=== PATIENT | male | born 1965 | race Caucasian/White ===

== ENCOUNTER 2017-12-17 07:45 | Emergency (ER) | payer BC ==
[2017-12-17 08:36] LABS: Absolute Lymphocytes (CBC) 2.6 K/uL (0.7-4.9); Absolute Monocytes 0.7 K/uL (0.1-1.3); Absolute Neutrophil 5.3 K/uL (1.8-8.0); Basophils % 1.1 % (0-1.3); Eosinophils % 3.1 % (0-4.4); Hematocrit 47.9 % (39.6-49.0); Lymphocytes % 29.2 % (15.3-44.8); MCH 29.8 pg (27.0-35.0); MCV 87.1 fL (80-100); MPV 8.3 fL (7.6-11.3); Monocytes % 7.6 % (3.3-12.3); RBC Red Blood Cell Count 5.51 M/uL (4.33-5.43)
[2017-12-17] MEDS ORDERED: METHYLPREDNISOLONE 125 MG INJ ONE (08:42)
[2017-12-17] MEDS ORDERED: ALBUTEROL 2.5 MG/3 ML NEB SOL ONE (08:43)
[2017-12-17] MEDS ORDERED: IPRATROPIUM BROM 0.5MG/2.5ML ONE (08:43)
[2017-12-17] MEDS ORDERED: MORPHINE 4 MG/ML SYR ONE ×2 (08:44→09:40)
[2017-12-17] MEDS ORDERED: AZITHROMYCIN 0 MG/0 ML BAG ONE (08:44)
[2017-12-17] MEDS ORDERED: PIPER/TAZO/NS 3.375gm 3.375 GM/100 ML BAG ONE (08:44)
[2017-12-17] MEDS ORDERED: NA CHLORIDE 0.9% 2,000 ML ONE (08:45)
--- NOTE | 2017-12-17 08:54 | EDPHYS ---
Physician Documentation [facility] Name: Eben Narvaez Age: 52 yrs Sex: Male : 1965 Arrival Date: 12/17/2017 Time: 07:47 Bed 8 Private MD: ED Physician Mike Ritter HPI: 12/17 08:49 This 52 yrs old Male presents to ER via Wheelchair with complaints of Cough, leandro Breathing Difficulty, RIB PAIN. 08:49 The patient or guardian reports cough, difficulty breathing. Onset: The leandro symptoms/episode began/occurred 2 week(s) ago. Severity of symptoms: At their worst the symptoms were mild, moderate, in the emergency department the symptoms are unchanged. Modifying factors: The symptoms are alleviated by nothing, the symptoms are aggravated by exertion, talking. Associated signs and symptoms: Pertinent positives: chest pain. The patient has not experienced similar symptoms in the past. Historical: - Allergies: 08:10 NKA; iw - Home Meds: 08:16 losartan oral oral [Active]; levothyroxine 75 mcg tab 1 tab once daily [Active]; iw - PMHx: 08:16 Hypertension; Hypothyroidism; iw - Immunization history:: Adult Immunizations not up to date. - Social history:: Smoking status: Patient/guardian denies using tobacco. - Ebola Screening: : Patient negative for fever greater than or equal to 101.5 degrees Fahrenheit, and additional compatible Ebola Virus Disease symptoms Patient denies exposure to infectious person Patient denies travel to an Ebola-affected area in the 21 days before illness onset No symptoms or risks identified at this time. ROS: 08:50 Constitutional: Negative for fever, chills, and weight loss, Eyes: Negative for injury, leandro pain, redness, and discharge, ENT: Negative for injury, pain, and discharge, Neck: Negative for injury, pain, and swelling, Cardiovascular: Negative for chest pain, palpitations, and edema, Abdomen/GI: Negative for abdominal pain, nausea, vomiting, diarrhea, and constipation, Back: Negative for injury and pain, : Negative for injury, bleeding, discharge, and swelling, MS/Extremity: Negative for injury and deformity, Skin: Negative for injury, rash, and discoloration, Neuro: Negative for headache, weakness, numbness, tingling, and seizure, Psych: Negative for depression, anxiety, suicide ideation, homicidal ideation, and hallucinations, Allergy/Immunology: Negative for hives, rash, and allergies, Endocrine: Negative for neck swelling, polydipsia, polyuria, polyphagia, and marked weight changes, Hematologic/Lymphatic: Negative for swollen nodes, abnormal bleeding, and unusual bruising. 08:50 Respiratory: Positive for cough, pleurisy, of the right lateral anterior chest and right lateral posterior chest, shortness of breath. Exam: 08:50 Constitutional: This is a well developed, well nourished patient who is awake, alert, leandro and in no acute distress. Head/Face: Normocephalic, atraumatic. Eyes: Pupils equal round and reactive to light, extra-ocular motions intact. Lids and lashes normal. Conjunctiva and sclera are non-icteric and not injected. Cornea within normal limits. Periorbital areas with no swelling, redness, or edema. ENT: Nares patent. No nasal discharge, no septal abnormalities noted. Tympanic membranes are normal and external auditory canals are clear. Oropharynx with no redness, swelling, or masses, exudates, or evidence of obstruction, uvula midline. Mucous membranes moist. Neck: Trachea midline, no thyromegaly or masses palpated, and no cervical lymphadenopathy. Supple, full range of motion without nuchal rigidity, or vertebral point tenderness. No Meningismus. Chest/axilla: Normal chest wall appearance and motion. Nontender with no deformity. No lesions are appreciated. Cardiovascular: Regular rate and rhythm with a normal S1 and S2. No gallops, murmurs, or rubs. Normal PMI, no JVD. No pulse deficits. Abdomen/GI: Soft, non-tender, with normal bowel sounds. No distension or tympany. No guarding or rebound. No evidence of tenderness throughout. Back: No spinal tenderness. No costovertebral tenderness. Full range of motion. Male : Normal genitalia with no discharge or lesions. Skin: Warm, dry with normal turgor. Normal color with no rashes, no lesions, and no evidence of cellulitis. MS/ Extremity: Pulses equal, no cyanosis. Neurovascular intact. Full, normal range of motion. Neuro: Awake and alert, GCS 15, oriented to person, place, time, and situation. Cranial nerves II-XII grossly intact. Motor strength 5/5 in all extremities. Sensory grossly intact. Cerebellar exam normal. Normal gait. Psych: Awake, alert, with orientation to person, place and time. Behavior, mood, and affect are within normal limits. 08:50 Respiratory: mild respiratory distress is noted, moderate respiratory distress is noted, Respirations: labored breathing, that is mild, that is moderate, Breath sounds: decreased breath sounds, rhonchi, that are moderate, are heard in the right middle lobe, right lower lobe, right posterior middle lobe and right posterior lower lobe. 08:52 Musculoskeletal/extremity: DVT Exam: No signs of deep vein thrombosis. no pain, no leandro swelling, no tenderness, negative Homans' sign noted on exam, no appreciated bluish discoloration, no erythema, no increased warmth. Vital Signs: 08:45 BP 165 / 121; Pulse 87; Resp 15; Pulse Ox 97% on R/A; Weight 96.62 kg; Height 5 ft. 7 iw in. (170.18 cm); Pain 10/10; 09:13 BP 142 / 95; Pulse 73; Resp 17; Pulse Ox 99% on R/A; jb1 09:35 BP 139 / 89; Pulse 78; Resp 22; Pulse Ox 96% on R/A; jb4 10:35 BP 136 / 80; Pulse 80; Resp 19; Pulse Ox 92% on R/A; Pain 0/10; jb4 11:36 BP 130 / 74; Pulse 77; Resp 17; Temp 97.8(O); Pulse Ox 96% on 2 lpm NC; jb4 12:00 BP 132 / 75; Pulse 67; Resp 17; Pulse Ox 95% on 2 lpm NC; jb4 13:08 BP 145 / 78; Pulse 75; Resp 16; Pulse Ox 96% on R/A; Pain 0/10; jb4 13:36 BP 134 / 82; Pulse 78; Resp 20; Pulse Ox 95% on 2 lpm NC; Pain 0/10; jb4 08:45 Body Mass Index 33.36 (96.62 kg, 170.18 cm) iw MDM: 07:58 Patient medically screened. [facility] 08:51 Data reviewed: vital signs, nurses notes, lab test result(s), EKG, radiologic studies, [facility] CT scan, plain films. 12/17 08:02 Order name: Basic Metabolic Panel; Complete Time: 09:32 [facility] 12/17 08:02 Order name: CBC with Diff; Complete Time: 08:52 [facility] 12/17 08:02 Order name: Ckmb; Complete Time: 09:32 [facility] 12/17 08:02 Order name: CPK; Complete Time: 09:32 [facility] 12/17 08:02 Order name: LFT's; Complete Time: 09:32 [facility] 12/17 08:02 Order name: Magnesium; Complete Time: 09:32 [facility] 12/17 08:02 Order name: NT PRO-BNP; Complete Time: 09:32 [facility] 12/17 08:02 Order name: PT-INR; Complete Time: 08:52 [facility] 12/17 08:02 Order name: Ptt, Activated; Complete Time: 08:52 [facility] 12/17 08:02 Order name: Troponin (emerg Dept Use Only); Complete Time: 09:32 [facility] 12/17 08:02 Order name: Blood Culture Adult (2) [facility] 12/17 08:13 Order name: Procalcitonin; Complete Time: 09:32 [facility] 12/17 08:13 Order name: Lactate; Complete Time: 09:32 [facility] 12/17 11:43 Order name: Urine Dipstick--Ancillary (enter results) 12/17 08:02 Order name: Chest Pa And Lat (2 Views) XRAY; Complete Time: 10:44 [facility] 12/17 08:43 Order name: CT Chest For PE Angio [facility] 12/17 08:57 Order name: INCENTIVE SPIROMETRY [facility] 12/17 10:36 Order name: CT; Complete Time: 10:44 EDMS 12/17 11:03 Order name: CT Abd/Pelvis - Without Cont aa5 12/17 12:25 Order name: Urine Dipstick-Ancillary [facility] 12/17 13:24 Order name: CT [facility] 12/17 08:02 Order name: EKG; Complete Time: 08:03 [facility] 12/17 08:02 Order name: Cardiac monitoring; Complete Time: 08:05 [facility] 12/17 08:02 Order name: EKG - Nurse/Tech; Complete Time: 08:05 [facility] 12/17 08:02 Order name: IV Saline Lock; Complete Time: 08:05 [facility] 12/17 08:02 Order name: Labs collected and sent; Complete Time: 08:30 [facility] 12/17 08:02 Order name: O2 Per Protocol; Complete Time: 08:08 [facility] 12/17 08:02 Order name: O2 Sat Monitoring; Complete Time: 08:08 [facility] 12/17 08:02 Order name: Urine Dipstick-Ancillary (obtain specimen); Complete Time: 11:36 [facility] 12/17 08:57 Order name: CONS Physician Consult EDMS Administered Medications: 08:40 Drug: Albuterol - atroVENT (3:1) (2.5 mg - 0.5 mg) 3 ml Route: Nebulizer; jb4 08:45 Follow up: Response: No adverse reaction jb4 08:40 Drug: SOLU-Medrol 125 mg Route: IVP; Site: left antecubital; jb4 09:00 Follow up: Response: No adverse reaction jb4 08:43 Drug: morphine 4 mg Route: IVP; Site: left antecubital; jb4 09:00 Follow up: Response: No adverse reaction jb4 08:44 Drug: NS 0.9% 1000 ml Route: IV; Rate: 1 bolus; Site: left antecubital; jb4 10:55 Follow up: Response: No adverse reaction; IV Status: Completed infusion jb4 08:45 Drug: Zosyn 3.375 grams Route: IVPB; Infused Over: 60 mins; Site: left antecubital; jb4 10:45 Follow up: IV Status: Order to discontinue infusion; Order to discontinue infusion by aa5 Dr. Lino. 09:40 Drug: TORadol 30 mg Route: IVP; Site: left antecubital; jb4 10:04 Follow up: Response: No adverse reaction jb4 09:42 Drug: morphine 4 mg Route: IVP; Site: left antecubital; jb4 10:04 Follow up: Response: No adverse reaction jb4 11:06 Not Given (VO to cancel administration by Dr. Lino): Zithromax 500 mg IVPB once over 1 aa5 hrs; mix in 250 mL NS 11:12 Not Given (VO to cancel administration per Dr. Lino): NS 0.9% 1000 ml IV at 125 ml/hr aa5 continuous Disposition: 12/17/17 10:50 Discharged to Home. Impression: Gastro-esophageal reflux disease, Fatty (change of) liver, not elsewhere classified, Obesity due to excess calories. - Condition is Stable. - Discharge Instructions: Atelectasis, Adult, Food Choices for Gastroesophageal Reflux Disease, Adult, Gastroesophageal Reflux Disease, Adult, Fatty Liver Disease Diet, Pediatric. - Prescriptions for Protonix 40 mg Oral Tablet - take 1 tablet by ORAL route once daily; 30 tablet. - Medication Reconciliation Form, Thank You Letter, Antibiotic Education, Prescription Opioid Use form. - Follow up: Corey Lopez MD; When: 1 - 2 days. - Problem is chronic. - Symptoms have improved. Signatures: Dispatcher [employer] EDPR Mike Ritter MD MD cha Williams, Irene, RN RN iw Juan Daniel Flores RN RN jb4 Elizabeth Lino MD MD rp3 Britt Maloney RN aa5 Corrections: (The following items were deleted from the chart) 10:49 08:53 Hospitalization Ordered by Elizabeth Lino MD for Inpatient Admission. Preliminary rp3 diagnosis is Cough; Dyspnea; Pleurisy; Pneumonia due to other specified bacteria. Bed requested for Telemetry/MedSurg (Inpatient). Status is Inpatient Admission. Condition is Fair. Problem is new. Symptoms have improved. UTI on Admission? No. [facility] 14:20 10:50 12/17/2017 10:50 Discharged to Home. Impression: Gastro-esophageal reflux jb4 disease; Fatty (change of) liver, not elsewhere classified; Obesity due to excess calories. Condition is Stable. Forms are Medication Reconciliation Form, Thank You Letter, Antibiotic Education, Prescription Opioid Use. Follow up: Corey Lopez; When: 1 - 2 days. Problem is chronic. Symptoms have improved. rp3
--- NOTE | 2017-12-17 08:54 | ER ---
Nurse's Notes [facility] Name: Eben Narvaez Age: 52 yrs Sex: Male : 1965 Arrival Date: 12/17/2017 Time: 07:47 Bed 8 Private MD: Diagnosis: Gastro-esophageal reflux disease;Fatty (change of) liver, not elsewhere classified;Obesity due to excess calories Presentation: 12/17 08:09 Presenting complaint: states: pt has had cough X 1 month, started having pain to iw right ribs and right abd area 2 days ago, pain 10/10, increased pain and difficulty breathing when he moves or takes a deep breath. Transition of care: patient was not received from another setting of care. Onset of symptoms was December 17, 2017. Risk Assessment: Do you want to hurt yourself or someone else? Patient reports no desire to harm self or others. Initial Sepsis Screen: Does the patient meet any 2 criteria? No. Patient's initial sepsis screen is negative. Does the patient have a suspected source of infection? No. Patient's initial sepsis screen is negative. Care prior to arrival: None. 08:09 Method Of Arrival: Wheelchair iw 08:09 Acuity: NESS 2 iw Triage Assessment: 08:06 Respiratory: Reports cough that is non-productive, the patient has mild shortness of jb4 breath. 08:06 General: Appears in no apparent distress. uncomfortable, Behavior is calm, cooperative, jb4 appropriate for age. Historical: - Allergies: 08:10 NKA; iw - Home Meds: 08:16 losartan oral oral [Active]; levothyroxine 75 mcg tab 1 tab once daily [Active]; iw - PMHx: 08:16 Hypertension; Hypothyroidism; iw - Immunization history:: Adult Immunizations not up to date. - Social history:: Smoking status: Patient/guardian denies using tobacco. - Ebola Screening: : Patient negative for fever greater than or equal to 101.5 degrees Fahrenheit, and additional compatible Ebola Virus Disease symptoms Patient denies exposure to infectious person Patient denies travel to an Ebola-affected area in the 21 days before illness onset No symptoms or risks identified at this time. Screenin:09 Abuse screen: Denies threats or abuse. Nutritional screening: No deficits noted. jb4 Tuberculosis screening: No symptoms or risk factors identified. 08:09 Fall Risk None identified. jb4 Assessment: 08:25 General: Appears in no apparent distress. uncomfortable, Behavior is calm, cooperative, jb4 appropriate for age. Pain: Complains of pain in right lateral anterior chest Pain does not radiate. Pain currently is 10 out of 10 on a pain scale. at worst was 10 out of 10 on a pain scale. Quality of pain is described as stabbing, Pain began 2-3 days ago. Is continuous. Neuro: Level of Consciousness is awake, alert, obeys commands, Oriented to person, place, time, situation. Cardiovascular: Heart tones S1 S2 present Patient's skin is warm and dry. Rhythm is sinus rhythm. Respiratory: Airway is patent Respiratory effort is unlabored, shallow, Respiratory pattern is regular, symmetrical, Breath sounds are clear in right upper lobe, left upper lobe, left lower lobe, left posterior upper lobe, right posterior upper lobe and left posterior lower lobe Breath sounds are diminished in right middle lobe, right lower lobe, right posterior middle lobe and right posterior lower lobe. GI: No signs and/or symptoms were reported involving the gastrointestinal system. : No signs and/or symptoms were reported regarding the genitourinary system. EENT: No signs and/or symptoms were reported regarding the EENT system. Derm: Skin is intact, Skin is pink, warm \T\ dry. Musculoskeletal: No signs and/or symptoms reported regarding the musculoskeletal system. 09:15 Reassessment: Pt taken to CT. jb4 09:30 Reassessment: Pt back from CT. Unable to tolerate. Provider notified, See MAR for jb4 orders. 09:55 Reassessment: Patient appears in no apparent distress at this time. Patient and/or jb4 family updated on plan of care and expected duration. Pain level reassessed. Patient is alert, oriented x 3, equal unlabored respirations, skin warm/dry/pink. Pt laying supine. Denies pain at this time. Will reassess to evaluate ability to tolerate CT. 10:00 Reassessment: Pt tolerated lying supine for 5 minutes, denies pain. CT notified. jb4 10:20 Reassessment: Patient and/or family updated on plan of care and expected duration. Pain aa5 level reassessed. Patient is alert, oriented x 3, equal unlabored respirations, skin warm/dry/pink. Pt back from CT scan. Pt given urinal. Pt was instructed to remain bedrest until CT scan results are posted, pt verbalized understanding. . 10:23 Reassessment: Dr. Lino at bedside . aa5 11:13 Reassessment: Patient appears in no apparent distress at this time. Patient and/or jb4 family updated on plan of care and expected duration. Pain level reassessed. Patient is alert, oriented x 3, equal unlabored respirations, skin warm/dry/pink. Pt awaiting CT. Oral contrast delived. 11:36 Reassessment: Pt finished contrast, CT notified. jb4 12:23 Reassessment: Patient appears in no apparent distress at this time. Patient and/or jb4 family updated on plan of care and expected duration. Pain level reassessed. Patient is alert, oriented x 3, equal unlabored respirations, skin warm/dry/pink. 13:06 Reassessment: Pt is at CT. jb4 13:08 Reassessment: Pt back from CT. jb4 13:30 Reassessment: Patient appears in no apparent distress at this time. Patient and/or jb4 family updated on plan of care and expected duration. Pain level reassessed. Patient is alert, oriented x 3, equal unlabored respirations, skin warm/dry/pink. Patient denies pain at this time. 13:56 Reassessment: Contacted Dr. Lino about CT results. Instructed to continue with jb4 discharge. Vital Signs: 08:45 BP 165 / 121; Pulse 87; Resp 15; Pulse Ox 97% on R/A; Weight 96.62 kg; Height 5 ft. 7 iw in. (170.18 cm); Pain 10/10; 09:13 BP 142 / 95; Pulse 73; Resp 17; Pulse Ox 99% on R/A; jb1 09:35 BP 139 / 89; Pulse 78; Resp 22; Pulse Ox 96% on R/A; jb4 10:35 BP 136 / 80; Pulse 80; Resp 19; Pulse Ox 92% on R/A; Pain 0/10; jb4 11:36 BP 130 / 74; Pulse 77; Resp 17; Temp 97.8(O); Pulse Ox 96% on 2 lpm NC; jb4 12:00 BP 132 / 75; Pulse 67; Resp 17; Pulse Ox 95% on 2 lpm NC; jb4 13:08 BP 145 / 78; Pulse 75; Resp 16; Pulse Ox 96% on R/A; Pain 0/10; jb4 13:36 BP 134 / 82; Pulse 78; Resp 20; Pulse Ox 95% on 2 lpm NC; Pain 0/10; jb4 08:45 Body Mass Index 33.36 (96.62 kg, 170.18 cm) ED Course: 07:47 Patient arrived in ED. mr 07:58 Mike Ritter MD is Attending Physician. leandro 08:02 Juan Daniel Flores RN is Primary Nurse. jb4 08:08 EKG done, by ED staff, reviewed by Mike Ritter MD. jb1 08:09 Patient has correct armband on for positive identification. Placed in gown. Bed in low jb4 position. Call light in reach. Side rails up X 1. front desk monitor on. Pulse ox on. NIBP on. 08:10 Triage completed. iw 08:10 First set of blood cultures drawn by me. jb1 08:15 Arm band placed on. iw 08:25 Second set of blood cultures drawn by me. jb1 08:30 Initial lab(s) drawn, by me, sent to lab. Inserted saline lock: 22 gauge in left jb1 antecubital area, using aseptic technique. Blood collected. 08:34 X-ray completed. Patient tolerated procedure well. Patient moved to radiology via [facility] wheelchair. Patient moved back from radiology. 08:35 Chest Pa And Lat (2 Views) XRAY In Process Unspecified. EDMS 08:52 Elizabeth Lino MD is Hospitalizing Provider. leandro 09:01 Radiology exam delayed due to lab results not completed at this time. (BUN/Creatinine). kw1 09:59 Radiology exam delayed due to pt is unable to lay flat for the ct scan of his lungs. pt kw1 was returned to ER. was informed of the situation. Rn will call when pt can lay flat for ct scan. 10:18 CT completed. Patient tolerated procedure well. Patient moved back from CT. kw1 10:49 Corey Lopez MD is Referral Physician. rp3 13:06 CT completed. Patient tolerated procedure well. Patient moved back from CT. bq 14:01 CT Abd/Pelvis - Without Cont Sent. jb4 14:02 Urine Dipstick--Ancillary (enter results) Sent. jb4 14:03 INCENTIVE SPIROMETRY Sent. jb4 14:03 CT Chest For PE Angio Sent. jb4 14:18 IV discontinued, intact, bleeding controlled. jb4 14:18 No provider procedures requiring assistance completed. jb4 Administered Medications: 08:40 Drug: Albuterol - atroVENT (3:1) (2.5 mg - 0.5 mg) 3 ml Route: Nebulizer; jb4 08:45 Follow up: Response: No adverse reaction jb4 08:40 Drug: SOLU-Medrol 125 mg Route: IVP; Site: left antecubital; jb4 09:00 Follow up: Response: No adverse reaction jb4 08:43 Drug: morphine 4 mg Route: IVP; Site: left antecubital; jb4 09:00 Follow up: Response: No adverse reaction jb4 08:44 Drug: NS 0.9% 1000 ml Route: IV; Rate: 1 bolus; Site: left antecubital; jb4 10:55 Follow up: Response: No adverse reaction; IV Status: Completed infusion jb4 08:45 Drug: Zosyn 3.375 grams Route: IVPB; Infused Over: 60 mins; Site: left antecubital; jb4 10:45 Follow up: IV Status: Order to discontinue infusion; Order to discontinue infusion by aa5 Dr. Lino. 09:40 Drug: TORadol 30 mg Route: IVP; Site: left antecubital; jb4 10:04 Follow up: Response: No adverse reaction jb4 09:42 Drug: morphine 4 mg Route: IVP; Site: left antecubital; jb4 10:04 Follow up: Response: No adverse reaction jb4 11:06 Not Given (VO to cancel administration by Dr. Lino): Zithromax 500 mg IVPB once over 1 aa5 hrs; mix in 250 mL NS 11:12 Not Given (VO to cancel administration per Dr. Lino): NS 0.9% 1000 ml IV at 125 ml/hr aa5 continuous Outcome: 08:53 Decision to Hospitalize by Provider. leandro 10:50 Discharge ordered by . rp3 14:18 Discharged to home ambulatory. jb4 14:18 Condition: stable 14:18 Discharge instructions given to patient, family, Instructed on discharge instructions, follow up and referral plans. medication usage, Use of incentive spirometer. Demonstrated understanding of instructions, follow-up care, medications, use of incentive spirometer. 14:20 Patient left the ED. jb4 Signatures: Dispatcher [employer] EDMS Dominic Davis jb1 Mike Ritter MD MD cha Rivera, Maria mr Lori, Xin Sharp, RN ROBERT iw Britt Maloney RN RN aa5 Juan Daniel Flores RN RN jb4 Emerald Kilpatrick 1 Elizabeth Lino MD MD 3 Fabi Shoemaker 1 Corrections: (The following items were deleted from the chart) 10:09 08:25 Cardiovascular: Heart tones S1 S2 present Patient's skin is warm and dry. Rhythm jb4 is jb4 10:12 08:25 Cardiovascular: Heart tones S1 S2 present Patient's skin is warm and dry. Rhythm jb4 is jb4 11:40 11:36 BP 130 / 74; Pulse 77bpm; Resp 17bpm; Pulse Ox 93% 2 lpm Nasal Cannula; jb4 jb4 11:43 11:36 BP 130 / 74; Pulse 77bpm; Resp 17bpm; Pulse Ox 96% 2 lpm Nasal Cannula; jb4 jb4
[2017-12-17 09:04] LABS: ALT/SGPT 88 U/L (12-78); AST/SGOT 61 U/L (15-37); Albumin 3.8 g/dL (3.4-5.0); Alkaline Phosphatase 90 U/L (45-117); BUN Blood Urea Nitrogen 13 mg/dL (7-18); Bicarbonate 26 mmol/L (21-32); Bilirubin Direct 0.2 mg/dL (0-0.2); Bilirubin Total 0.7 mg/dL (0.2-1.0); CKMB Creatine Kinase MB < 1.0 ng/mL (0.3-3.6); Creatine Phosphokinase 89 U/L (39-308); Glucose Level 103 mg/dL (74-106); Magnesium 2.6 mg/dL (1.8-2.4); NT PRO-BNP 31 pg/mL (<125); Potassium 3.8 mmol/L (3.5-5.1); Protein, Total 7.3 g/dL (6.4-8.2); Sodium Level 141 mmol/L (136-145)
[2017-12-17] MEDS ORDERED: KETOROLAC 30 MG/ML INJ ONE (09:40)
--- NOTE | 2017-12-17 10:34 | RAD REPORT ---
EXAM DESCRIPTION: RAD - Chest Pa And Lat (2 Views) - 12/17/2017 8:37 am CLINICAL HISTORY: Persistent cough, right-sided chest and rib pain COMPARISON: None. TECHNIQUE: PA and lateral views of the chest were obtained. FINDINGS: The lungs are underinflated. Right base opacification is present obscuring the right hemid iaphragm and partially obscuring the right heart border. This is primarily right middle lobe. Patient could have a right lung base consolidated pneumonia. This is potentially atelectasis or minimal infi ltrate accentuated by a elevated right hemidiaphragm. Heart size is normal and central vasculature is within normal limits. No pleural effusion or pneumot horax seen. No acute bony finding noted. No aortic abnormality. IMPRESSION: Right lung base opacification. This could be from right base consolidation or atelectasi s and right hemidiaphragm elevation.
--- NOTE | 2017-12-17 10:34 | RAD REPORT ---
EXAM DESCRIPTION: CT - Chest For Pe Angio - 12/17/2017 10:19 am CLINICAL HISTORY: Cough, rib pain, shortness of breath COMPARISON: Chest films same date TECHNIQUE: Dynamically enhanced 3 mm thick images of the chest were obtained during administration o f approximately 150mL Isovue 370 IV contrast. Coronal and oblique MIP reconstruction images were gene rated and reviewed. Exam utilizes a protocol to evaluate the pulmonary arterial tree. All CT scans are performed using dose optimization technique as appropriate and may include automated exposure control or mA/KV adjustment according to patient size. FINDINGS: No pulmonary emboli are identified. The aorta as imaged shows no acute or suspicious finding. No pericardial thickening or effusion. No mass consolidation in the left lung field. There is some atelectasis present. Right hemidiaphragm is elevated. Minimal right pleural effusion is seen. Right middle lobe and right lower lobe lung base atelectasis present. Minimal infiltrates could be masked in this setting. No pneumothorax present. N o left pleural effusion. No mediastinal or hilar suspicious masses. No chest wall masses or abnormal axillary lymphadenopathy. Limited upper abdomen imaging shows fatty infiltration of the liver. IMPRESSION: No pulmonary emboli identified. Elevated right hemidiaphragm with right middle lobe and right lower lobe atelectasis and trace amount of pleural effusion. Minimal infiltrate could be masked in the lung parenchyma at the right base. No consolidation.
[2017-12-17 12:25] LABS: Urine Blood NEGATIVE (NEG); Urine Glucose NEGATIVE (NEG); Urine Protein NEGATIVE (NEG)
--- NOTE | 2017-12-17 12:27 | P.CNS ---
Date of Consult: 12/17/17 HPI: 52-year-old male with no significant past medical history who presented to the ED complaining of having some cough that has been going on for past 1 month. Patient stated that he has been having coughing as soon as he eats and lays down after he eats. Patient has been coughing for over a month had recently started having some rib pain and thus decided to come to the ER as he thought he was rib fractures. Of note patient was recently diagnosed with hypothyroidism and states that he has gained a lot of weight recently and feels like all his organs of pushed up. Patient denies having any fever chills shortness of breath, abdominal pain diarrhea constipation chest pain or any other associated symptoms. Patient stated aside from having cough and muscle pain he does not have any other complaints to offer at this time. at bedside states that patient is pretty unhealthy in terms of his diet and exercise. The patient is an ex-smoker who is quit smoking a long time ago stated that he mostly smoked while he was 20. Denies any alcohol intake and denies any drug abuse as well. ER consulted hospitalist group to admit the patient for pneumonia given his cough and concern of atelectasis on chest x-ray. Physical exam Generally alert and oriented x3. No acute distress noticed. Patient does appear to be obese with truncal obesity. Cardiovascular regular rate and rhythm. No murmurs were heard Lungs clear to auscultate bilaterally no wheezing rales or rhonchi noted Extremity negative for edema. Positive pulses in all 4 extremity Abdomen nontender nondistended no pain upon deep palpation either. Neuro cranial nerves 2-12 intact Vitals: Stable Lab work: Within normal limits except elevated transaminitis. Chest x-ray: Within normal limits except bilateral lower lung atelectasis noted an elevated right hemidiaphragm CTA: Negative for PE, elevated right hemidiaphragm, bilateral lower lung atelectasis noted Assessment and plan 1. Cough x1 month most likely secondary to GERD. Patient will be given a prescription for Protonix to go home with. 2. Possible pneumonia. Pros calcitonin negative white count negative neutrophil count negative chest x-ray within normal limits. Pneumonia ruled out. 3. Elevated transaminitis most likely secondary to fatty liver. Patient educated extensively on diet and exercise and follow up with primary care provider. 4. Elevated right hemidiaphragm CT abdomen and pelvis ordered to rule out any acute abnormality. CT abdomen and pelvis negative for any other acute abnormality or mass. Disposition: The patient to be discharged home under stable condition with diagnosis of reflux and given a prescription of Protonix and dietary restriction for reflux as well.
--- NOTE | 2017-12-17 13:23 | RAD REPORT ---
EXAM DESCRIPTION: CT - Abdomen Pelvis Wo Contrast - 12/17/2017 1:05 pm CLINICAL HISTORY: Abdominal pain, right flank pain COMPARISON: None. TECHNIQUE: Axial [address] imaging of the abdomen and pelvis was performed without IV contrast. No IV contrast was given because of allergy, abnormal renal function, patient refusal or physician re quest. Oral contrast was given. All CT scans are performed using dose optimization technique as appropriate and may include automated exposure control or mA/KV adjustment according to patient size. FINDINGS: Right pleural effusion and atelectasis are present detailed on earlier chest film and CT P E study. Liver shows diffuse fatty infiltration. No focal liver lesion on noncontrast imaging. Spleen and panc reas show no suspicious findings. Multi stone cholelithiasis is present. No wall thickening or edema identified. No duct stone or biliary tree dilatation. No hydronephrosis or suspicious renal mass. No obstructing or nonobstructing calculi identifiable. Co ntrast is present in the ureters from earlier PE study. Contrast is present in the bladder as well. N o bladder wall thickening, mass or bladder calculus identified. No significant adrenal finding. Isode nse renal masses and pyelonephritis cannot be excluded in the absence of IV contrast. No adrenal abno rmality. No dilated bowel loops or bowel wall thickening. No free air, free fluid or inflammatory stranding. N o mass or bulky lymphadenopathy. Fat extends into each inguinal canal. Appendix is normal. No prostat e gland or seminal vesicle abnormality. No suspicious bony findings. IMPRESSION: Multi stone cholelithiasis. No CT findings for an acute gallbladder or biliary tree proc ess. Diffuse fatty infiltration of the liver with no focal liver lesions seen. Small right pleural effusion and right base atelectasis detailed on separate CT and plain film chest imaging. No hydronephrosis, renal calculi or acute finding identifiable. Full assessment is limited is the absence of IV contrast.
[2017-12-17 14:30] VITALS: TEMP 97.8
[2017-12-17 14:34] VITALS: BP 134/82; O2SAT 95
--- NOTE | 2017-12-18 07:52 | EKG ---
Test Date: 2017-12-17 Test Time: 08:03:04 Detasseler: ANNETTE MEASUREMENT RESULTS: Intervals: Rate: 78 NV: 148 QRSD: 100 QT: 376 QTc: 428 Hendricks: P: 49 NV: 148 QRS: 79 T: 33 INTERPRETIVE STATEMENTS: Normal sinus rhythm Normal ECG Compared to ECG 12/28/2003 18:58:00 Sinus arrhythmia no longer present Right-axis deviation no longer present Electronically Signed On 12-18-17 07:51:01 CDT by Justo Mcneil
== END 2017-12-17 14:20 | disposition home or self-care (01) ==
LOC: ER 07:45 → ERHOLD 08:54 → UNDOADMIN 08:54
DX: K21.9 Gastro-esophageal reflux disease without esophagitis (principal); I10 Essential (primary) hypertension; E03.9 Hypothyroidism, unspecified; K76.0 Fatty (change of) liver, not elsewhere classified; Z87.891 Personal history of nicotine dependence; E66.09 Other obesity due to excess calories; Z68.33 Body mass index [BMI] 33.0-33.9, adult
CPT/HCPCS: 36415; 71046; 71275; 74176; 80048; 80076; 81003; 82550; 82553; 83605; 83735; 83880; 84145; 84484; 85025; 85610; 85730; 87040; 93005; 94640; 96365; 96366; 96375; 99285; J0456; J2543; J2930; J7030; Q9967

== ENCOUNTER 2018-03-28 00:24 | Emergency (ER) | payer BC ==
[2018-03-28] MEDS ORDERED: MORPHINE 4 MG/ML SYR ONE (01:07)
[2018-03-28] MEDS ORDERED: NA CHLORIDE 0.9% 1,000 ML ONE (01:07)
[2018-03-28] MEDS ORDERED: ONDANSETRON 4 MG/2 ML VIAL ONE (01:07)
[2018-03-28 01:21] LABS: Urine Blood 3+ (NEG); Urine Glucose NEGATIVE (NEG); Urine Protein 1+ (NEG); Urine Specific Gravity >1.030 (1.005-1.030); Urine pH 5.5 (5.0-7.0)
[2018-03-28 01:24] LABS: Absolute Lymphocytes (CBC) 3.2 K/uL (0.7-4.9); Absolute Monocytes 0.6 K/uL (0.1-1.3); Absolute Neutrophil 4.6 K/uL (1.8-8.0); Basophils % 0.8 % (0-1.3); Eosinophils % 2.4 % (0-4.4); Hematocrit 47.5 % (39.6-49.0); Lymphocytes % 36.7 % (15.3-44.8); MCV 86.5 fL (80-100); Monocytes % 7.2 % (3.3-12.3); RBC Red Blood Cell Count 5.49 M/uL (4.33-5.43)
[2018-03-28 01:26] LABS: Urine Bacteria <20 /HPF (NONE SEEN); Urine Culture Reflex Order NOT NEEDED; Urine Mucus LIGHT /HPF (NONE SEEN); Urine RBC >50 /HPF (NONE SEEN)
[2018-03-28 01:28] LABS: Bilirubin Direct 0.2 mg/dL (0-0.2); Bilirubin Total 0.6 mg/dL (0.2-1.0); Potassium 3.5 mmol/L (3.5-5.1); Protein, Total 7.4 g/dL (6.4-8.2)
--- NOTE | 2018-03-28 02:09 | EDPHYS ---
Physician Documentation [facility] Name: Eben Narvaez Age: 52 yrs Sex: Male : 1965 Arrival Date: 03/28/2018 Time: 00:25 Bed 19 Private MD: ED Physician oJse Montanez HPI: 03/28 01:46 This 52 yrs old Male presents to ER via EMS with complaints of Right Flank pm1 Pain. 01:46 The patient complains of pain in the right low back. Radiation to right testicle. pm1 Onset: The symptoms/episode began/occurred today. Modifying factors: The symptoms are alleviated by nothing. the symptoms are aggravated by nothing. Associated signs and symptoms: Pertinent positives: nausea, Pertinent negatives: dysuria, fever. Severity of pain: in the emergency department the pain is actually worse. The patient has not experienced similar symptoms in the past. The patient has not recently seen a physician. Historical: - Allergies: 00:46 NKA; la1 01:24 NKA; la1 - PMHx: 00:46 Hypertension; Hypothyroidism; BPH; la1 01:24 Hypertension; Hypothyroidism; BPH; la1 - Immunization history:: Adult Immunizations up to date, Adult Immunizations up to date. - Social history:: Smoking status: Patient/guardian denies using tobacco, Smoking status: Patient/guardian denies using tobacco. - Ebola Screening: : No symptoms or risks identified at this time No symptoms or risks identified at this time. ROS: 01:46 Constitutional: Negative for fever, chills, and weight loss, Eyes: Negative for injury, pm1 pain, redness, and discharge, ENT: Negative for injury, pain, and discharge, Neck: Negative for injury, pain, and swelling, Cardiovascular: Negative for chest pain, palpitations, and edema, Respiratory: Negative for shortness of breath, cough, wheezing, and pleuritic chest pain, Abdomen/GI: Negative for abdominal pain, nausea, vomiting, diarrhea, and constipation. 01:46 : Negative for injury, bleeding, discharge, and swelling, MS/Extremity: Negative for injury and deformity, Skin: Negative for injury, rash, and discoloration, Neuro: Negative for headache, weakness, numbness, tingling, and seizure. 01:46 Back: Positive for flank pain, on the right. Exam: 01:46 Constitutional: This is a well developed, well nourished patient who is awake, alert, pm1 and in no acute distress. Head/Face: Normocephalic, atraumatic. Eyes: Pupils equal round and reactive to light, extra-ocular motions intact. Lids and lashes normal. Conjunctiva and sclera are non-icteric and not injected. Cornea within normal limits. Periorbital areas with no swelling, redness, or edema. ENT: Nares patent. No nasal discharge, no septal abnormalities noted. Tympanic membranes are normal and external auditory canals are clear. Oropharynx with no redness, swelling, or masses, exudates, or evidence of obstruction, uvula midline. Mucous membranes moist. Neck: Trachea midline, no thyromegaly or masses palpated, and no cervical lymphadenopathy. Supple, full range of motion without nuchal rigidity, or vertebral point tenderness. No Meningismus. Chest/axilla: Normal chest wall appearance and motion. Nontender with no deformity. No lesions are appreciated. Cardiovascular: Regular rate and rhythm with a normal S1 and S2. No gallops, murmurs, or rubs. Normal PMI, no JVD. No pulse deficits. Respiratory: Lungs have equal breath sounds bilaterally, clear to auscultation and percussion. No rales, rhonchi or wheezes noted. No increased work of breathing, no retractions or nasal flaring. 01:46 Skin: Warm, dry with normal turgor. Normal color with no rashes, no lesions, and no evidence of cellulitis. MS/ Extremity: Pulses equal, no cyanosis. Neurovascular intact. Full, normal range of motion. 01:46 Abdomen/GI: Inspection: abdomen appears normal, Bowel sounds: normal, Palpation: abdomen is soft and non-tender. 01:46 Back: CVA tenderness, is noted on the right, vertebral tenderness, is not appreciated. 01:46 Neuro: Orientation: is normal, Motor: is normal, moves all fours. Vital Signs: 00:46 BP 148 / 74; Pulse 81; Resp 16; Temp 98.2; Pulse Ox 98% on R/A; la1 02:02 BP 125 / 81; Pulse 66; Resp 16; Pulse Ox 97% on R/A; mt MDM: 00:38 Patient medically screened. pm1 01:48 Data reviewed: vital signs. Data interpreted: Pulse oximetry: on room air is 98 %. pm1 Interpretation: normal. 02:06 Counseling: I had a detailed discussion with the patient and/or guardian regarding: the pm1 historical points, exam findings, and any diagnostic results supporting the discharge/admit diagnosis, lab results, radiology results, the need for outpatient follow up, a urologist, to return to the emergency department if symptoms worsen or persist or if there are any questions or concerns that arise at home. 03/28 00:47 Order name: Urine Dipstick--Ancillary (enter results); Complete Time: em1 03/28 00:48 Order name: Basic Metabolic Panel; Complete Time: la1 03/28 00:48 Order name: CBC with Diff; Complete Time: la03/28 00:48 Order name: Hepatic Function; Complete Time: la1 03/28 00:48 Order name: Lipase; Complete Time: la1 03/28 00:48 Order name: Urine Microscopic Only; Complete Time: la1 03/28 00:48 Order name: IV Saline Lock; Complete Time: 00:48 la1 03/28 00:48 Order name: Labs collected and sent; Complete Time: 00:48 la1 03/28 00:48 Order name: CT Stone Protocol la1 Administered Medications: 01:03 Drug: NS 0.9% 1000 ml Route: IV; Rate: 1000 ml; Site: right antecubital; la1 02:07 Follow up: IV Status: Completed infusion la1 01:04 Drug: morphine 4 mg Route: IVP; Site: right antecubital; la1 02:07 Follow up: Response: No adverse reaction; Pain is decreased la1 01:04 Drug: Zofran 4 mg Route: IVP; Site: right antecubital; la1 02:07 Follow up: Response: No adverse reaction la Drug: Flomax 0.4 mg Route: PO; la05 02: Follow up: Response: Medication administered at discharge. la1 Disposition: 03/28/18 02:08 Discharged to Home. Impression: Calculus of ureter - right ureterovesical junction. - Condition is Stable. - Discharge Instructions: Kidney Stones, Dietary Guidelines to Help Prevent Kidney Stones. - Prescriptions for Tylenol- Codeine #3 300-30 mg Oral Tablet - take 2 tablets by ORAL route every 6 hours As needed; 20 tablet. Zofran 4 mg Oral Tablet - take 1 tablet by ORAL route every 12 hours As needed; 10 tablet. Flomax 0.4 mg Oral Capsule, Sust. Release 24 hr - take 1 capsule by ORAL route once daily 1/2 hour following the same meal each day; 30 capsule. - Medication Reconciliation Form, Thank You Letter, Antibiotic Education, Prescription Opioid Use form. - Follow up: Brendan Bess MD; When: 2 - 3 days; Reason: Recheck today's complaints, Continuance of care, Re-evaluation by your physician. - Problem is new. - Symptoms have improved. Addendum: 03/30/2018 04:07 Co-signature as Attending Physician, Jose Montanez MD. g s Signatures: Dispatcher [employer] EDMS Kehinde Woods RN RN la1 Efrain Matute, NUMERICAL CONTROL MACHINE OPERATOR NUMERICAL CONTROL MACHINE OPERATOR pm1 Jose Montanez MD MD Corrections: (The following items were deleted from the chart) 03/28 02:30 02:08 03/28/2018 02:08 Discharged to Home. Impression: Calculus of ureter - right la1 ureterovesical junction. Condition is Stable. Forms are Medication Reconciliation Form, Thank You Letter, Antibiotic Education, Prescription Opioid Use. Follow up: Brendan Bess; When: 2 - 3 days; Reason: Recheck today's complaints, Continuance of care, Re-evaluation by your physician. Problem is new. Symptoms have improved. pm1
--- NOTE | 2018-03-28 02:09 | ER ---
Nurse's Notes [facility] Name: Eben Narvaez Age: 52 yrs Sex: Male : 1965 Arrival Date: 03/28/2018 Time: 00:25 Bed 19 Private MD: Diagnosis: Calculus of ureter-right ureterovesical junction Presentation: 03/28 00:26 Presenting complaint: Patient states: right flank and testicle pain rated 10/10. la1 Transition of care: patient was not received from another setting of care. Onset of symptoms was March 28, 2018. Risk Assessment: Do you want to hurt yourself or someone else? Patient reports no desire to harm self or others. Initial Sepsis Screen: Does the patient meet any 2 criteria? No. Patient's initial sepsis screen is negative. Does the patient have a suspected source of infection? No. Patient's initial sepsis screen is negative. Care prior to arrival: None. 00:26 Method Of Arrival: EMS: [facility] la1 00:26 Acuity: NESS 3 la1 Historical: - Allergies: 00:46 NKA; la1 01:24 NKA; la1 - PMHx: 00:46 Hypertension; Hypothyroidism; BPH; la1 01:24 Hypertension; Hypothyroidism; BPH; la1 - Immunization history:: Adult Immunizations up to date, Adult Immunizations up to date. - Social history:: Smoking status: Patient/guardian denies using tobacco, Smoking status: Patient/guardian denies using tobacco. - Ebola Screening: : No symptoms or risks identified at this time No symptoms or risks identified at this time. Screenin:46 Abuse screen: Denies threats or abuse. Nutritional screening: No deficits noted. la1 Tuberculosis screening: No symptoms or risk factors identified. Fall Risk None identified. Assessment: 00:46 General: Appears in no apparent distress. Behavior is calm, cooperative, appropriate la1 for age. Pain: Complains of pain in anterior aspect of left lateral abdomen and posterior aspect of left lateral abdomen Pain radiates to groin. Neuro: Level of Consciousness is awake, alert, obeys commands, Oriented to person, place, time, situation. Cardiovascular: Heart tones S1 S2 present Capillary refill < 3 seconds Patient's skin is warm and dry. Respiratory: Airway is patent Respiratory effort is even, unlabored, Respiratory pattern is regular, symmetrical, Breath sounds are clear bilaterally. GI: Abdomen is non-distended, obese, Bowel sounds present X 4 quads. Abd is soft X 4 quads Abdomen is tender to palpation in right lower quadrant. : No signs and/or symptoms were reported regarding the genitourinary system. Vital Signs: 00:46 BP 148 / 74; Pulse 81; Resp 16; Temp 98.2; Pulse Ox 98% on R/A; la1 02:02 BP 125 / 81; Pulse 66; Resp 16; Pulse Ox 97% on R/A; mt ED Course: 00:25 Patient arrived in ED. la1 00:27 Triage completed. la1 00:38 Efrain Matute NP is PHCP. pm1 00:38 Jose Montanez MD is Attending Physician. pm1 00:45 Kehinde Woods RN is Primary Nurse. la1 00:46 Arm band placed on left wrist. la1 00:46 Patient has correct armband on for positive identification. Placed in gown. Bed in low la1 position. Call light in reach. Pulse ox on. NIBP on. 00:46 No provider procedures requiring assistance completed. Inserted saline lock: 22 gauge la1 in right antecubital area, using aseptic technique. Blood collected. 01:01 Radiology exam delayed due to Patient receiving pain meds at this time. kw1 01:[address] via wheelchair. kw1 01:17 CT Stone Protocol In Process Unspecified. EDMS 01:21 CT completed. Patient tolerated procedure well. Patient moved back from CT. kw1 02:06 Brendan Bess MD is Referral Physician. pm1 02:29 IV discontinued, intact, bleeding controlled, No redness/swelling at site. Pressure la1 dressing applied. Administered Medications: 01:03 Drug: NS 0.9% 1000 ml Route: IV; Rate: 1000 ml; Site: right antecubital; la1 02:07 Follow up: IV Status: Completed infusion la1 01:04 Drug: morphine 4 mg Route: IVP; Site: right antecubital; la1 02:07 Follow up: Response: No adverse reaction; Pain is decreased la1 01:04 Drug: Zofran 4 mg Route: IVP; Site: right antecubital; la1 02:07 Follow up: Response: No adverse reaction la1 02:29 Drug: Flomax 0.4 mg Route: PO; la1 :29 Follow up: Response: Medication administered at discharge. la1 Outcome: 02:08 Discharge ordered by . pm1 :30 Discharged to home ambulatory. la1 : Condition: improved :30 Condition: stable 02:30 Discharge instructions given to patient, Instructed on discharge instructions, follow up and referral plans. medication usage, Demonstrated understanding of instructions, follow-up care, medications, Prescriptions given X 3. :30 Patient left the ED. la1 Signatures: Dispatcher [employer] EDMS Kehinde Woods RN RN la1 Efrain Matute, NELLY RETAIL ASSISTANT pm1 Lori Lee mt, Kimberly kw1
[2018-03-28] MEDS ORDERED: TAMSULOSIN 0.4 MG SR CAP ONE (02:20)
--- NOTE | 2018-03-28 10:00 | RAD REPORT ---
EXAM DESCRIPTION: CT - Stone Protocol - 03/28/2018 5:55 am CLINICAL HISTORY: Abdominal pain. Right flank pain COMPARISON: None. TECHNIQUE: Computed axial tomography of the abdomen pelvis was obtained without oral or IV contrast. Lack of IV and oral contrast limits evaluation of solid organs, bowel, and vessels. Coronal reformat adam images were obtained and reviewed. Preliminary report was generated by virtual radiologic and rev iewed prior to dictation All CT scans are performed using dose optimization technique as appropriate and may include automated exposure control or mA/KV adjustment according to patient size. FINDINGS: 3 millimeter calculus is present at the right ureteral vesicle junction. Minimal right hyd ronephrosis. A renal calculus is not seen. Fatty infiltration liver The Spleen, pancreas and adrenals appear grossly normal There is no evidence of diverticulitis. The appendix appears normal Multiple gallstones without gallbladder wall thickening Umbilical hernias containing fat IMPRESSION: 3 millimeter calculus right ureterovesical junction with minimal right hydronephrosis Cholelithiasis without evidence of cholecystitis
[2018-03-28 12:19] VITALS: TEMP 98.2
[2018-03-28 12:20] VITALS: BP 125/81; O2SAT 97
== END 2018-03-28 02:30 | disposition home or self-care (01) ==
LOC: ER 00:24
DX: N20.1 Calculus of ureter (principal); I10 Essential (primary) hypertension
CPT/HCPCS: 36415; 74176; 76377; 80048; 80076; 81003; 81015; 83690; 85025; 96361; 96374; 96375; 99284; J2405; J7030